=== PATIENT | male | born 1980 | race Caucasian/White ===

== ENCOUNTER 2023-09-18 17:11 | Emergency (ER) | payer SELFPAY ==
--- NOTE | 2023-09-18 17:47 | PC.NURSE ---
pt left before triaged
== END 2023-09-18 19:17 | disposition left against medical advice (07) ==
LOC: ANHED 18:09
DX: Z53.21 Procedure and treatment not carried out due to patient leaving prior to being seen by health care provider (principal)
CPT/HCPCS: 99199

== ENCOUNTER 2023-09-18 18:41 | Emergency (ER) | payer BC, SELFPAY ==
--- NOTE | 2023-09-18 18:43 | ED.SOB ---
HPI - SOB/Dyspnea General Chief Complaint: Anxiety Stated Complaint: Hyperventilation Time Seen by Provider: 09/18/23 18:42 Source: patient Mode of arrival: ambulatory Limitations: no limitations History of Present Illness HPI Narrative: Kristopher is a 43-year-old male patient presenting to the clinic today with complaints of hyperventilation and feeling lightheaded, dizzy, and anxious. He reports this started yesterday. Was given prescription for Vistaril and has been taking that without much relief. He reports he has only been taking 1 pill which is 25 mg. States he has felt anxious and been hyperventilating for good part of the day. Is having some numbness and tingling in his extremities. Denies any chest pain. Almost hit a deer on the way here and that increased his anxiety. Related Data Home Medications Medication Instructions Recorded Confirmed amlodipine 10 mg tablet mg 09/18/23 hydroxyzine pamoate 25 mg capsule mg 09/18/23 Allergies Allergy/AdvReac Type Severity Reaction Status Date / Time Unable to Assess Allergy Verified 09/18/23 18:49 Review of Systems Review of Systems: Pertinent positives per HPI. Patient denies any fever, chills, rash, headache, visual changes, dizziness, cough, runny nose, sore throat, shortness of breath, chest pain, palpitations, nausea, vomiting, diarrhea, constipation, abdominal pain, or any urinary issues. PMFSH Comments At the time of my signature, I reviewed and agree with the nursing past medical, surgical, social, and family history. There is no relevant family history pertinent to the patient complaint. Exam Narrative: General: Well-developed, well nourished, in no apparent distress Head: Normocephalic, atraumatic Eyes: Pupils equally round and reactive to light bilaterally, EOM intact, sclera and conjunctive clear, no discharge, lids normal Ears: TMs intact and clear, ear canals clear, no drainage, grossly hearing normal. Nose: Nares patent, no discharge, no inflammation, no sinus tenderness. Mouth: Oropharynx without lesions or masses, good dentition, MMM. Neck: Supple, trachea midline, no enlargement of anterior or posterior cervical nodes, no thyroid masses or goiter palpable. Cardio: Tachycardic- regular rate and rhythm, s1 and s2 normal, no murmur appreciated. Resp: Clear to auscultation bilaterally anteriorly and posteriorly, no rhonchi, rales, wheezing or rubs Course Course Emergency Course: Portions of this record may have been created with voice recognition software. Level of Care: Express Care Visit Vital Signs Vital signs: Vital signs reviewed MDM - SOB/Dyspnea MDM Narrative Medical decision making narrative: At the time of visit patient is resting comfortably on the exam table. Patient appears to be nontoxic. EKG shows normal sinus rhythm with a heart rate of 83 beats per minute with a non specific ST wave abnormality. No ST elevation or depression noted. Benadryl 50 mg IM given in the clinic today. This helped to calm the patient down. Patient is no longer hyperventilating. Supportive measures were discussed with the patient and they voiced understanding discharge instructions and agrees to treatment plan. Return precautions reviewed Differential Diagnosis Differential diagnosis: Likely other (Hyperventilation, acute anxiety, panic attack) ECG Data EKG #1: Attestation: I personally reviewed and interpreted this ECG as follows: ECG completion date: 09/18/23 ECG completion time: 19:11 Prior ECG tracings: not available for review Interpretation: EKG shows sinus rhythm with heart rate of 83 beats per minute with a nonspecific T-wave abnormality. No ST elevation or depression noted. pR interval is 163 milliseconds, QRS durations 88 milliseconds, QT-QTC is 365-405 milliseconds, P-R-T axis is 63 49 80 Discharge Plan Discharge Clinical Impression: Acute anxiety, Hyperventilation Patient Dis
[2023-09-18 18:55] VITALS: BP 148/101; PULSE 101; RESP 20; TEMP 36.6; O2SAT 100
--- NOTE | 2023-09-18 18:59 | ECG_ITS ---
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
[2023-09-18] MEDS: diphenhydrAMINE HCl INJ 50 MG/ML VIAL IM (19:07)
== END 2023-09-18 19:29 | disposition home or self-care (01) ==
PROVIDERS: Emergency Provider Nurse Practitioner Family
DX: F41.9 Anxiety disorder, unspecified (principal); R06.4 Hyperventilation; I10 Essential (primary) hypertension
CPT/HCPCS: 93005; 96372; 99213; G0463; J1200